=== PATIENT | female | born 1975 | race African-American/Black ===

== ENCOUNTER 2017-11-10 21:03 | Inpatient (IN) | payer OTHER ==
[~2017-11-10] VITALS: Ht 157.5 cm; Wt 75.3 kg
[2017-11-10 21:08] VITALS: Ht 157.5 cm; Wt 75.3 kg
[2017-11-10 21:59] LABS: UA SPECIFIC GRAVITY 1.025 (1.005-1.035); microscopic required? YES; urine erythrocyte 2+ (NEGATIVE)
[2017-11-10 22:38] LABS: BASOPHIL % 0.3 % (0-2); PLATELET COUNT 374 x10^3mcL (130-400); RED CELL DISTRIBUTION WIDTH 12.9 % (11.5-14.5)
[2017-11-10 22:40] LABS: CALCIUM 8.4 mg/dL (8.5-10.1); CARBON DIOXIDE 26.6 mmol/L (21-32); CHLORIDE SERUM 103 mmol/L (98-107); GFR1 > 60 mL/min; GLUCOSE SERUM 99 mg/dL (74-106); POTASSIUM SERUM 3.8 mmol/L (3.5-5.1); SODIUM SERUM 138 mmol/L (136-145)
[2017-11-10 22:44] LABS: ALBUMIN 3.4 g/dL (3.4-5.0); ALKALINE PHOSPHATASE 79 U/L (46-116); ALT/SGPT 23 U/L (14-59); AST/SGOT 15 U/L (15-37); BILIRUBIN TOTAL 0.2 mg/dL (0.20-1.00)
[2017-11-11] MEDS ORDERED: LISINOPRIL10 MG PO (03:35)
[2017-11-11 04:26] LABS: FREE T4 0.91 ng/dL (0.76-1.46); T4(THYROXINE) 8.5 ug/dL (4.7-13.3)
[2017-11-11 04:28] LABS: T3 TOTAL 1.26 ng/mL
[2017-11-11 04:33] VITALS: BP 165/94
[2017-11-11 04:40] LABS: PHOSPHOROUS 3.8 mg/dL (2.5-4.9)
[2017-11-11 05:00] LABS: AMPHETAMINE QUAL UR NONE DETECTED (See below)
[2017-11-11 05:55] LABS: CHOLESTEROL/HDL RATIO 4.7
[2017-11-11 08:17] VITALS: BP 144/86
[2017-11-11] MEDS ORDERED: NORCO1 TA2 PO (12:30)
[2017-11-11] MEDS ORDERED: COL100 PO (12:32)
[2017-11-11 12:46] VITALS: BP 144/86
[2017-11-11 13:00] VITALS: BP 119/77
[2017-11-11 16:25] VITALS: BP 145/87
== END 2017-11-11 18:04 | disposition home or self-care (01) | DRG 532 ==
LOC: ED 21:03 → DU 11-11 03:30
PROVIDERS: Emergency Medicine; Internal Medicine
DX: D25.9 Leiomyoma of uterus, unspecified (principal); E44.1 Mild protein-calorie malnutrition; N83.201 Unspecified ovarian cyst, right side; E66.01 Morbid (severe) obesity due to excess calories; I88.0 Nonspecific mesenteric lymphadenitis; N39.0 Urinary tract infection, site not specified; I10 Essential (primary) hypertension; Z88.2 Allergy status to sulfonamides; Z98.891 History of uterine scar from previous surgery; Z68.42 Body mass index [BMI] 45.0-49.9, adult
CPT/HCPCS: 83880; 84439; J0696; J1885; J2270; J3490; J7030; Q0092

== ENCOUNTER 2018-08-01 15:27 | Emergency (ER) | payer OTHER ==
[~2018-08-01] VITALS: Ht 160 cm; Wt 122.5 kg
[~2018-08-01 15:27] MED LIST: COL100 PO; LISINOPRIL10 MG PO; NORCO1 TA2 PO
[2018-08-01 19:23] VITALS: BP 163/109
== END 2018-08-01 19:23 | disposition short-term general hospital (02) ==
LOC: ED 15:27
DX: H40.211 Acute angle-closure glaucoma, right eye (principal); G89.29 Other chronic pain; I10 Essential (primary) hypertension; Z88.2 Allergy status to sulfonamides

== ENCOUNTER 2019-09-03 17:16 | Emergency (ER) | payer OTHER ==
[2019-09-03 17:58] LABS: BASOPHIL % 0.4 % (0-2); PLATELET COUNT 354 x10^3mcL (130-400); RED CELL DISTRIBUTION WIDTH 12.9 % (11.5-14.5)
[2019-09-03 18:21] LABS: CALCIUM 8.9 mg/dL (8.5-10.1); CARBON DIOXIDE 26.4 mmol/L (21-32); CHLORIDE SERUM 102 mmol/L (98-107); GFR1 > 60 mL/min; GLUCOSE SERUM 94 mg/dL (74-106); POTASSIUM SERUM 4.1 mmol/L (3.5-5.1); SODIUM SERUM 137 mmol/L (136-145)
[2019-09-03 18:26] LABS: ALBUMIN 3.6 g/dL (3.4-5.0); ALKALINE PHOSPHATASE 70 U/L (46-116); ALT/SGPT 28 U/L (14-59); AST/SGOT 17 U/L (15-37); BILIRUBIN TOTAL 0.19 mg/dL (0.20-1.00); TOTAL PROTEIN, SERUM 8.1 g/dL (6.4-8.2)
[2019-09-03 19:39] VITALS: BP 148/90
== END 2019-09-03 19:40 | disposition home or self-care (01) ==
LOC: ED 17:16
PROVIDERS: Emergency Medicine
DX: N93.9 Abnormal uterine and vaginal bleeding, unspecified (principal); R42 Dizziness and giddiness; R55 Syncope and collapse; D25.9 Leiomyoma of uterus, unspecified; I10 Essential (primary) hypertension; Z88.2 Allergy status to sulfonamides
CPT/HCPCS: 36415